=== PATIENT | male | born 1985 | race Caucasian/White ===

== ENCOUNTER → 2018-02-01 | Outpatient (CLI) | payer OTHER ==
[~2018-02-01] MED LIST: No meds per pt.
== END | disposition home or self-care (01) ==
LOC: STAR 14:10
PROVIDERS: ATTEND Surgery
DX: Z02.9 Encounter for administrative examinations, unspecified (principal)

== ENCOUNTER 2018-02-08 07:22 | Day surgery (SDC) | payer OTHER ==
[~2018-02-08] VITALS: Ht 190.5 cm; Wt 73.5 kg
[2018-02-08] MEDS ORDERED: LACTATED RINGERS 1,000 ML IV SCH (07:44)
[2018-02-08 07:48] VITALS: BP 118/65
[2018-02-08] MEDS ORDERED: BUPIVACAINE/PF 0.5% ONE (09:04)
[2018-02-08] MEDS ORDERED: EPINEPHRINE 1 MG/ML, 1ML ONE (09:04)
[2018-02-08] MEDS ORDERED: FENTANYL PF 250 MCG/5ML ONE (09:23)
[2018-02-08] MEDS ORDERED: MIDAZOLAM 1 MG/ML, 2ML ONE (09:23)
[2018-02-08] MEDS ORDERED: DEXAMETHASONE 4 MG/ML, 5ML ONE (09:26)
[2018-02-08] MEDS ORDERED: SUCCINYLCHOLINE 20 MG/ML, 10ML ONE (09:26)
[2018-02-08] MEDS ORDERED: CEFAZOLIN 1,000 MG ONE (09:26)
[2018-02-08] MEDS ORDERED: KETOROLAC 30 MG/1 ML ONE (09:26)
[2018-02-08] MEDS ORDERED: PROPOFOL 10 MG/ML, 50ML ONE (09:26)
[2018-02-08] MEDS ORDERED: LABETALOL 5MG/ML, 20ML IV PRN (10:00)
[2018-02-08] MEDS ORDERED: OXYcodone 5 MG/5 ML ORAL.SOL UDC PO PRN (10:00)
[2018-02-08] MEDS ORDERED: MEPERIDINE/PF 25MG/0.5ML IVPush PRN (10:00)
[2018-02-08] MEDS ORDERED: ACETAMINOPHEN 325 MG TABLET PO PRN (10:00)
[2018-02-08] MEDS ORDERED: ONDANSETRON 2MG/ML, 2ML IV PRN (10:00)
[2018-02-08] MEDS ORDERED: hydrALAzine 20 MG/ML, 1ML IV PRN (10:00)
[2018-02-08] MEDS ORDERED: FENTANYL PF 100 MCG/2ML ONE (10:30)
[2018-02-08] MEDS: FENTANYL PF 100 MCG/2ML IV PRN ×3 (10:31→10:50)
[2018-02-08] MEDS ORDERED: OXYcodone 5 MG/5 ML ORAL.SOL UDC ONE (10:31)
[2018-02-08] MEDS ORDERED: DIPHENHYDRAMINE 50 MG/ML, 1ML ONE (10:44)
[2018-02-08] MEDS ORDERED: DIPHENHYDRAMINE 50 MG/ML, 1ML IVPush ONE (11:00)
== END 2018-02-08 12:45 | disposition home or self-care (01) ==
LOC: OUT 07:22
PROVIDERS: ATTEND Surgery
DX: K80.10 Calculus of gallbladder with chronic cholecystitis without obstruction (principal); Z87.891 Personal history of nicotine dependence
CPT/HCPCS: 47562; 88304; J0171; J0330; J0690; J1100; J1200; J1885; J2250; J2704; J3010; J3490; J7120